=== PATIENT | female | born 1960 | race Caucasian/White ===

== ENCOUNTER → 2024-02-14 | Outpatient (CLI) | payer OTHER ==
[2024-02-14 11:11] LABS: Urine Bacteria FEW /hpf (None Seen); Urine Blood Negative /uL (Negative); Urine Budding Yeast OCCASIONAL /hpf (None Seen); Urine Clarity Turbid (Clear); Urine Color Yellow (Yellow); Urine Hyaline Cast FEW /lpf (0 - 2); Urine Mucus FEW (None Seen); Urine Protein, UAD Negative (Negative); Urine Urobilinogen Normal (Negative); Urine WBC <1 /hpf (0 - 5); Urine pH 5.5 (5.0-9.0)
[2024-02-14 11:16] LABS: Basophils # (auto) 0 10 ^3/uL (0-0.2); Basophils % (auto) 0.5 % (0.0-2.0); Eosinophils # (auto) 0.1 10 ^3/uL (0-0.8); Lymphocytes # (auto) 1.8 10 ^3/uL (0.4-5.4); Lymphocytes % (auto) 34.9 % (10.0-50.0); Mean Corpuscular Hemoglobin 29.8 pg (28.0-32.0); Mean Corpuscular Hgb Conc. 33.3 g/dL (32.0-36.0); Mean Corpuscular Volume 89.7 fL (80.0-100.0); Monocytes # (auto) 0.3 10 ^3/uL (0-1.3); Monocytes % (auto) 5.9 % (0.0-12.0); Neutrophils # (auto) 2.9 10 ^3/uL (1.6-8.6); Neutrophils % (auto) 56.7 % (37.0-80.0); Nucleated Red Blood Cells % 0.1 %; Red Blood Cells 4.68 10^6/uL (4.0-5.20); Red Cell Distribution Width 13.3 % (11.8-14.3); White Blood Cell 5.1 10^3/uL (4.4-10.8)
[2024-02-14 11:26] LABS: Albumin 4.5 g/dL (3.2-4.8); Alkaline Phosphatase 122 U/L (46-116); Anion Gap 5 (5-15); Aspartate Aminotransferase 13 U/L (13-40); BUN/Creatinine Ratio 10.8 (10.0-20.0); Blood Urea Nitrogen 10 mg/dL (9-23); Calcium 10.1 mg/dL (8.5-10.1); Carbon Dioxide 29 mmol/L (20-30); Chloride 106 mmol/L (98-107); Glucose 88 mg/dL (74-106); Potassium 4.4 mmol/L (3.5-5.1); Sodium 140 mmol/L (136-145)
[2024-02-14 11:27] LABS: Triglycerides 152 mg/dL (< 150)
[2024-02-14 11:28] LABS: Cholesterol 154 mg/dL (< 200); HDL Cholesterol 59 mg/dL (40-59); LDL Cholesterol 79 mg/dL (< 100)
[2024-02-14 11:29] LABS: Bilirubin, Total 0.3 mg/dL (0.2-1.0)
[2024-02-14 11:30] LABS: Folate (Folic Acid) 15.6 ng/mL (>5.38)
[2024-02-14 11:42] LABS: Alanine Aminotransferase 9 U/L (7-40)
[2024-02-14 11:51] LABS: Uric Acid 5.6 mg/dL (3.1-7.8)
== END | disposition home or self-care (01) ==
LOC: LAB 10:29
PROVIDERS: ATTEND Internal Medicine
DX: E61.2 Magnesium deficiency (principal); E79.0 Hyperuricemia without signs of inflammatory arthritis and tophaceous disease; R73.09 Other abnormal glucose; E78.49 Other hyperlipidemia; R68.89 Other general symptoms and signs; R94.6 Abnormal results of thyroid function studies; E55.9 Vitamin D deficiency, unspecified; R82.79 Other abnormal findings on microbiological examination of urine; R82.90 Unspecified abnormal findings in urine; D51.9 Vitamin B12 deficiency anemia, unspecified
CPT/HCPCS: 36415; 80053; 80061; 81001; 82306; 82607; 82746; 83036; 83735; 84443; 84550; 85025; 87086

== ENCOUNTER → 2024-06-13 | Outpatient (CLI) | payer OTHER ==
[2024-06-13 13:17] LABS: Urine WBC None Seen /hpf (0 - 5)
[2024-06-13 13:32] LABS: Urine Bacteria FEW /hpf (None Seen); Urine Blood Negative /uL (Negative); Urine Clarity Clear (Clear); Urine Color Yellow (Yellow); Urine Mucus FEW (None Seen); Urine Protein, UAD TRACE (Negative); Urine Specific Gravity 1.031 (1.001-1.035); Urine Urobilinogen Normal (Negative); Urine pH 5.5 (5.0-9.0)
[2024-06-13 14:00] LABS: % Iron Saturation 27.1 % (15-50); Albumin 4.5 g/dL (3.2-4.8); Alkaline Phosphatase 99 U/L (46-116); Anion Gap 5 (5-15); Aspartate Aminotransferase 12 U/L (13-40); BUN/Creatinine Ratio 12.8 (10.0-20.0); Bilirubin, Total 0.5 mg/dL (0.2-1.0); Blood Urea Nitrogen 12 mg/dL (9-23); CRP High Sensitivity 0.78 mg/dL (<1.0); Calcium 9.9 mg/dL (8.7-10.4); Carbon Dioxide 25 mmol/L (20-31); Chloride 110 mmol/L (98-107); Cholesterol 150 mg/dL (< 200); Glucose 99 mg/dL (74-106); HDL Cholesterol 58 mg/dL (40-59); LDL Cholesterol 79 mg/dL (< 100); Potassium 3.7 mmol/L (3.5-5.1); Sodium 140 mmol/L (136-145); Triglycerides 117 mg/dL (< 150)
[2024-06-13 14:01] LABS: Alanine Aminotransferase < 9 U/L (7-40); Erythrocyte Sedimentation Rate 5 mm/hr (0-20); Total Protein 6.9 g/dL (5.7-8.2)
[2024-06-13 14:10] LABS: Free T4 (Free Thyroxine) 1.01 ng/dL (0.89-1.76)
[2024-06-13 14:11] LABS: Uric Acid 5.8 mg/dL (3.1-7.8)
[2024-06-14 08:06] LABS: Complement C3 156 mg/dL (82-167); Rheumatoid Arthritis Factor 10.5 IU/mL (<14.0); Thyroid Peroxidase (TPO) Ab 14 IU/mL (0-34)
[2024-06-14 11:06] LABS: Anti-Nuclear Antibody Direct Negative (Negative); Anti-dsDNA Antibody 4 IU/mL (0-9); Antiscleroderma-70 Antibody <0.2 AI (0.0-0.9); RNP Antibody <0.2 AI (0.0-0.9); Sjogren's Anti-SS-A Antibody <0.2 AI (0.0-0.9); Sjogren's Anti-SS-B Antibody <0.2 AI (0.0-0.9); Smith Antibody <0.2 AI (0.0-0.9)
== END | disposition home or self-care (01) ==
LOC: LAB 12:57
PROVIDERS: ATTEND Internal Medicine
DX: L28.2 Other prurigo (principal); E78.00 Pure hypercholesterolemia, unspecified; M79.3 Panniculitis, unspecified; R79.89 Other specified abnormal findings of blood chemistry
CPT/HCPCS: 36415; 80053; 80061; 81001; 82306; 82607; 82672; 83036; 83540; 83550; 83880; 84439; 84443; 84550; 85652; 86141; 86160; 86225; 86235; 86376; 86431; 87086

== ENCOUNTER → 2024-10-27 | Outpatient (CLI) | payer OTHER ==
[2024-10-27 11:22] LABS: Basophils # (auto) 0 10 ^3/uL (0-0.2); Eosinophils # (auto) 0.1 10 ^3/uL (0-0.8); Eosinophils % (auto) 1.7 % (0.0-7.0); Hematocrit 42.5 % (36.0-46.0); Hemoglobin 13.8 g/dL (12.2-16.2); Lymphocytes # (auto) 1.5 10 ^3/uL (0.4-5.4); Lymphocytes % (auto) 30.9 % (10.0-50.0); Mean Corpuscular Hemoglobin 29.3 pg (28.0-32.0); Mean Corpuscular Hgb Conc. 32.5 g/dL (32.0-36.0); Mean Corpuscular Volume 90.2 fL (80.0-100.0); Monocytes # (auto) 0.3 10 ^3/uL (0-1.3); Monocytes % (auto) 6.1 % (0.0-12.0); Neutrophils % (auto) 60.3 % (37.0-80.0); Nucleated Red Blood Cells % 0.1 %; Platelet Count (auto) 268 10^3/uL (140-450); Red Blood Cells 4.71 10^6/uL (4.0-5.20); Red Cell Distribution Width 13.2 % (11.8-14.3)
[2024-10-27 12:07] LABS: Folate (Folic Acid) 15.64 ng/mL (>5.38)
[2024-10-27 12:08] LABS: Albumin 4.8 g/dL (3.2-4.8); Alkaline Phosphatase 101 U/L (46-116); Anion Gap 10 (5-15); Aspartate Aminotransferase 14 U/L (13-40); BUN/Creatinine Ratio 14.4 (10.0-20.0); Blood Urea Nitrogen 14 mg/dL (9-23); Calcium 9.8 mg/dL (8.7-10.4); Carbon Dioxide 25 mmol/L (20-31); Chloride 104 mmol/L (98-107); Glucose 92 mg/dL (74-106); Potassium 3.9 mmol/L (3.5-5.1); Sodium 139 mmol/L (136-145); Total Protein 7.2 g/dL (5.7-8.2)
[2024-10-27 12:09] LABS: Bilirubin, Total 0.5 mg/dL (0.2-1.0)
[2024-10-27 12:12] LABS: Erythrocyte Sedimentation Rate 2 mm/hr (0-20)
[2024-10-27 12:17] LABS: Alanine Aminotransferase < 9 U/L (7-40); Cholesterol 210 mg/dL (< 200); Triglycerides 181 mg/dL (< 150)
[2024-10-27 12:18] LABS: CRP High Sensitivity 0.96 mg/dL (<1.0); HDL Cholesterol 67 mg/dL (40-59); LDL Cholesterol 121 mg/dL (< 100)
[2024-10-27 13:03] LABS: Uric Acid 5.8 mg/dL (3.1-7.8)
== END | disposition home or self-care (01) ==
LOC: LAB 10:50
PROVIDERS: ATTEND Internal Medicine
DX: E61.2 Magnesium deficiency (principal); E55.9 Vitamin D deficiency, unspecified; D51.9 Vitamin B12 deficiency anemia, unspecified; E78.49 Other hyperlipidemia; E79.0 Hyperuricemia without signs of inflammatory arthritis and tophaceous disease; R94.6 Abnormal results of thyroid function studies; R82.79 Other abnormal findings on microbiological examination of urine; R82.998 Other abnormal findings in urine; R73.09 Other abnormal glucose; R68.89 Other general symptoms and signs; R82.90 Unspecified abnormal findings in urine
CPT/HCPCS: 36415; 80053; 80061; 82306; 82607; 82746; 83036; 84443; 84550; 85025; 85652; 86141; 87086

== ENCOUNTER 2025-06-25 23:34 | Inpatient (IN) | payer OTHER ==
[~2025-06-25] VITALS: Ht 170.2 cm; Wt 80.3 kg
[2025-06-26] VITALS (14 sets, daily range): BP systolic 101–164; BP diastolic 48–90; PULSE 68–110; RESP 17–18; TEMP 97.9–101.1; O2SAT 95–100
[2025-06-26 00:20] LABS: Hematocrit 40.2 % (36.0-46.0); Hemoglobin 13.2 g/dL (12.2-16.2); Mean Corpuscular Hemoglobin 29.7 pg (28.0-32.0); Mean Corpuscular Volume 90.5 fL (80.0-100.0); Nucleated Red Blood Cells % 0.0 %
--- NOTE | 2025-06-26 00:29 | DVH ---
CHEST RADIOGRAPH Indication: sob Technique: 1 view Comparison: None FINDINGS: Lines and Tubes: None. Lungs/Pleura: No focal consolidation, pleural effusion or pneumothorax. Cardiomediastinum: Unremarkable. Other: No acute osseous abnormality. Right upper quadrant surgical clips. IMPRESSION: 1. No acute cardiopulmonary abnormality.
[2025-06-26 00:40] LABS: Albumin 4.5 g/dL (3.2-4.8); Alkaline Phosphatase 112 U/L (46-116); Anion Gap 7 (5-15); BUN/Creatinine Ratio 9.3 (10.0-20.0); Calcium 9.6 mg/dL (8.7-10.4); Carbon Dioxide 26 mmol/L (20-31); Chloride 106 mmol/L (98-107); Magnesium 1.9 mg/dL (1.6-2.6); Potassium 4.1 mmol/L (3.5-5.1); Sodium 139 mmol/L (136-145); Total Protein 7.1 g/dL (5.7-8.2)
[2025-06-26 00:41] LABS: Alanine Aminotransferase < 9 U/L (7-40); Bilirubin, Total 0.5 mg/dL (0.2-1.0); Blood Urea Nitrogen 9 mg/dL (9-23); Glucose 117 mg/dL (74-106)
[2025-06-26] MEDS: IPRATROPIUM BROM 0.5 MG/2.5ML INH SOL NEB ONE (00:52)
[2025-06-26] MEDS: ALBUTEROL SULF 2.5 MG/0.5ML(0.5%) NEB SOLN NEB ONE (00:52)
[2025-06-26 01:10] LABS: INR 0.95 (0.9-1.15); Partial Thromboplastin Time 25.9 SEC (24.5-34.5); Prothrombin Time 10.1 sec (9.3-11.8)
[2025-06-26] MEDS ORDERED: DOCUSATE SOD 100 MG CAP PO PRN (02:00)
[2025-06-26] MEDS ORDERED: ACETAMINOPHEN 325 MG TAB PO PRN (02:00)
[2025-06-26] MEDS: ACETAMINOPHEN 500 MG TAB or CAP PO STA (03:33)
[2025-06-26] MEDS: LACTATED RINGER'S 1,850 ML IV ONE (03:53)
[2025-06-26 04:06] LABS: Hematocrit 39.6 % (36.0-46.0); Hemoglobin 13.1 g/dL (12.2-16.2); Mean Corpuscular Hemoglobin 29.8 pg (28.0-32.0); Mean Corpuscular Volume 89.8 fL (80.0-100.0); Nucleated Red Blood Cells % 0.0 %
[2025-06-26 04:11] LABS: COVID19 ANTIGEN SOFIA FIA NEGATIVE (NEGATIVE)
[2025-06-26] MEDS: SODIUM CHLORIDE 0.9% 1,000 ML IV SCH (04:15)
[2025-06-26] MEDS ORDERED: NITROGLYCERIN 0.4 MG SL TAB SL PRN (04:15)
[2025-06-26] MEDS ORDERED: MORPHINE SULFATE INJ 2 MG/ml SYRG IV PRN (04:15)
[2025-06-26 04:34] LABS: Albumin 4.5 g/dL (3.2-4.8); Alkaline Phosphatase 104 U/L (46-116); Anion Gap 9 (5-15); BUN/Creatinine Ratio 7.4 (10.0-20.0); Bilirubin, Total 0.5 mg/dL (0.2-1.0); Calcium 9.7 mg/dL (8.7-10.4); Carbon Dioxide 25 mmol/L (20-31); Chloride 106 mmol/L (98-107); Potassium 3.6 mmol/L (3.5-5.1); Sodium 140 mmol/L (136-145); Total Protein 7.2 g/dL (5.7-8.2)
[2025-06-26 04:37] LABS: Alanine Aminotransferase < 9 U/L (7-40); Blood Urea Nitrogen 7 mg/dL (9-23); Glucose 107 mg/dL (74-106)
[2025-06-26] MEDS: SODIUM CHLOR 0.9% PF (SALINE LOCK) 10ML VIAL/SYR IV SCH (06:02)
[2025-06-26] MEDS: PIPERACILLIN-TAZOB 3.375GM 100 ML IV SCH (06:06)
[2025-06-26 06:37] LABS: Urine Protein, UAD Negative (Negative)
[2025-06-26] MEDS: LEVALBUTEROL HCL 1.25 MG/3 ML NEB NEB SCH (07:22)
[2025-06-26] MEDS: METOPROLOL TARTRATE 25 MG TAB PO SCH (09:59)
[2025-06-26] MEDS: HYDROcodone-ACET 5/325MG TAB PO PRN (10:00)
[2025-06-26] MEDS ORDERED: HYDR-4798 PO (11:13)
[2025-06-26] MEDS ORDERED: ESTR2TAB5 PO (11:13)
[2025-06-26] MEDS ORDERED: LOSA-533 PO (11:13)
--- NOTE | 2025-06-26 11:30 | ED.PDOC ---
SOB-HPI HPI Comments HPI: Poor Historian. 65-year-old female presents to emergency depart for one-week history of cough and shortness of breath progressively getting worse. She also complains of fever. Denies sick contacts. Patient has sepsis criteria. Sepsis protocol initiated. Past Medical History: Hypertension Past Surgical History: Right knee surgery, hysterectomy, appendectomy, cholecystectomy Allergies to steroids REVIEW OF SYSTEMS: CONSTITUTIONAL: Denies acute: diaphoresis, chills, HEAD: Denies acute: headache, photophobia Eyes: Denies acute: Double vision, vision loss, eye pain, eye discharge. EARS: Denies acute: tinnitus, hearing loss, ear discharge, ear pain, THROAT: Denies acute: sore throat, swelling, difficulty swallowing , pain with swallowing, change in voice. NECK: Denies acute: neck pain, neck swelling, stiff neck. HEART: Denies acute : chest pain, palpitations, LUNGS: Denies acute: wheezing, hemoptysis ABDOMEN: Denies acute: abdominal pain, Nausea, Vomiting, diarrhea, melena , hematemesis, hematochezia SKIN: Denies acute: rash, redness, lesions, itchiness. EXTREMITIES: Denies acute: calf pain, numbness, tingling, weakness, denies pain in extremity. Denies acute: Low back pain. Neuro: Denies acute: focal neurological deficit, motor or sensory focal neurological deficit, tremors, seizure like activity, confusion, dizziness, change in mental status, loss of bowel or bladder function, cauda equina like symptoms. : Denies acute: dysuria, hematuria, flank pain, increase in urinary frequency. PSYCH: Denies acute: hallucination, suicidal ideation, homicidal ideation. FEMALE: Denies acute: abnormal vaginal bleeding, foul odor, unusual discharge. PHYSICAL EXAM: General: ---moderate-----acute distress, awake and alert. Head: normocephalic, atraumatic. Neck: supple, trachea is midline, no swelling. Throat: Normal phonation. Eyes:, no erythema, no purulent discharge, no proptosis, no icterus. Heart: regular rate, regular rhythm, no significant murmur appreciated. Lungs: no apparent respiratory distress, Able to speak in full sentences. No wheezing, no rhonchi, no crackles. No stridors Clear to auscultation bilaterally. Abdomen: non tender to palpation, non distended, soft, no guarding, no rebound, + bowel sounds. Neuro: Awake, Alert, oriented to name, self, situation, follows commands GCS=15. Speech is normal. Skin: no petechia, no purpura, no cyanosis, non-pale, not jaundice. Lower extremities: --no - Pitting edema no deformity, no focal swelling, no calf TTP. Makes eye contact. moves all four extremities. Face: no apparent facial droop. Ambulating in the ED independently. ED COURSE: DISCLAIMER: This medical document was created using an electronic medical record system with voice recognition software and computerized dictation system. Although this document has been carefully reviewed, there might still be some phonetic and typographical errors. Occasional wrong-word or "sound-alike" substitutions may have occurred due to the inherent limitations of voice recognition software. These areas are purely typographical due to imperfections of the software programs and do not reflect any compromise in the patient's medical care. Please read the chart carefully and recognize, using context, where these substitutions have occurred. Chief Complaint: Shortness of Breath Time Seen by MD: 23:52 Reviewed notes: Allergies Information Source: Patient Mode of Arrival: Ambulatory Differential Dx Differential Diagnosis: Other (DDx include ACS, unstable angina, anxiety, PE, pneumothroax, neoplasm, cardiac ischemia, COPD, asthma, CHF, pleural effusion, tobacco abuse, pneumonia, hypoxia, hypercapnia, anemia., infection/sepsis., pulmonary edema. Asthma, Cardiac tamponade, infection.) X-Ray, Labs, Meds, VS Vital Signs Date Time Temp Pulse Resp B/P (MAP) Pulse Ox O2 Delivery O2 Flow Rate FiO2 06/26/25 03:33 99.0 06/26/25 03:20 100 18 100 Room Air* 0 21 06/26/25 03:20 99.0 100 18 140/78 (98) 100 99.0 06/26/25 02:15 101.1 68 18 164/90 99 21 101.1 06/26/25 00:23 20 97 Room Air* 0 21 06/25/25 23:35 101.1 135 20 164/90 98 101.1 Lab Test 06/26/25 03:41 06/26/25 03:15 06/26/25 00:45 06/25/25 23:57 Range/Units White Blood Count 13.0 H 12.8 H 4.4-10.8 10^3/uL Red Blood Count 4.40 4.44 4.0-5.20 10^6/uL Hemoglobin 13.1 13.2 12.2-16.2 g/dL Hematocrit 39.6 40.2 36.0-46.0 % Mean Corpuscular Volume 89.8 90.5 80.0-100.0 fL Mean Corpuscular Hemoglobin 29.8 29.7 28.0-32.0 pg Mean Corpuscular Hemoglobin Concent 33.1 32.8 32.0-36.0 g/dL Red Cell Distribution Width 13.3 13.2 11.8-14.3 % Platelet Count 316 306 140-450 10^3/uL Mean Platelet Volume 8.3 8.4 6.9-10.8 fL Neutrophils (%) (Auto) 83.3 H 86.2 H 37.0-80.0 % Lymphocytes (%) (Auto) 10.6 7.7 L 10.0-50.0 % Monocytes (%) (Auto) 4.4 4.3 0.0-12.0 % Eosinophils (%) (Auto) 0.8 1.1 0.0-7.0 % Basophils (%) (Auto) 0.9 0.7 0.0-2.0 % Neutrophils # (Auto) 10.8 H 11.1 H 1.6-8.6 10 ^3/uL Lymphocytes # (Auto) 1.4 1.0 0.4-5.4 10 ^3/uL Monocytes # (Auto) 0.6 0.5 0-1.3 10 ^3/uL Eosinophils # (Auto) 0.1 0.1 0-0.8 10 ^3/uL Basophils # (Auto) 0.1 0.1 0-0.2 10 ^3/uL Nucleated Red Blood Cells 0.0 0.0 % Erythrocyte Sedimentation Rate 13 0-20 mm/hr Sodium Level 140 139 136-145 mmol/L Potassium Level 3.6 4.1 3.5-5.1 mmol/L Chloride Level 106 106 98-107 mmol/L Carbon Dioxide Level 25 26 20-31 mmol/L Anion Gap 9 7 5-15 Blood Urea Nitrogen 7 L 9 9-23 mg/dL Creatinine 0.94 0.97 0.550-1.02 mg/dL Glomerular Filtration Rate Calc 68 66 >90 mL/min BUN/Creatinine Ratio 7.4 L 9.3 L 10.0-20.0 Serum Glucose 107 H 117 H 74-106 mg/dL Calcium Level 9.7 9.6 8.7-10.4 mg/dL Total Bilirubin 0.5 0.5 0.2-1.0 mg/dL Aspartate Amino Transferase (AST) 16 14 13-40 U/L Alanine Aminotransferase (ALT) < 9 < 9 7-40 U/L Alkaline Phosphatase 104 112 46-116 U/L C-Reactive Protein High Sensitivity 5.12 H <1.0 mg/dL Total Protein 7.2 7.1 5.7-8.2 g/dL Albumin 4.5 4.5 3.2-4.8 g/dL Influenza Type A Antigen Negative Negative Influenza Type B Antigen Negative Negative SARS-CoV-2 Antigen (Rapid) Negative NEGATIVE Troponin I High Sensitivity < 3 L < 3 L </=34 ng/L Prothrombin Time 10.1 9.3-11.8 sec Prothrombin Time INR 0.95 0.9-1.15 Activated Partial Thromboplast Time 25.9 24.5-34.5 SEC D-Dimer, Quantitative 0.38 0.0-0.49 mg/L FEU Lactic Acid Level 1.5 0.4-2.0 mmol/L Magnesium Level 1.9 1.6-2.6 mg/dL Test 06/25/25 23:52 Range/Units B-Type Natriuretic Peptide 48.11 0-100 pg/mL Microbiology Date/Time Source Procedure Growth Status 06/25/25 23:59 Blood Blood Culture - Preliminary NO GROWTH AFTER 24 HOURS OF INCUBATION. Resulted 06/25/25 23:57 Blood Blood Culture - Preliminary NO GROWTH AFTER 24 HOURS OF INCUBATION. Resulted [address] [address] Ph: [phone] DIAGNOSTIC IMAGING Diagnostic Imaging Report : [id number] Signed PATIENT: DOMENICA HAY ACCT: [id number] UNIT: [id number] : 1960 LOC: ER ROOM / BED: / AGE / SEX: 65 / F ADM STATUS: REG ER SERVICE 642 ORDERING PHYSICIAN: BUCKY EL DO PROCEDURE(s): CXRP - CHEST PORTABLE REASON: sob ORDER NUMBER(s): [id number], ACCESSION NUMBER(s): [id number] CHEST RADIOGRAPH Indication: sob Technique: 1 view Comparison: None FINDINGS: Lines and Tubes: None. Lungs/Pleura: No focal consolidation, pleural effusion or pneumothorax. Cardiomediastinum: Unremarkable. Other: No acute osseous abnormality. Right upper quadrant surgical clips. IMPRESSION: 1. No acute cardiopulmonary abnormality. ATED BY: LIZZETTE DIAZ MD DICTATED DATE/TIME: 06/26/2525 SIGNED BY: LIZZETTE DIAZ MD SIGNED DATE/TIME: 06/26/2525 CC: Time of 1ST Reevaluation: 01:14 Reevaluation 1ST: Unchanged Patient Education/Counseling: Diagnosis, Treatment Family Education/Counseling: Diagnosis, Treatment Comments MDM: patient presented with the above HPI.--dyspnea/fever----workup was initiated. patient was found with the above mentioned diagnosis. the following medications were ordered: please refer to order lists of meds and tests obtained by myself Dr. El. Patient ED course and VS have been stabilized. Patient has been reassessed in the ED and remained in a stable condition. Pertinent incidental findings were discussed with the patient and/or family. Patient/family voices understanding and is agreeable with plan. Patient has been observed in the ED adequate length of time to insure improvement/stability. Escalation of care considered: Consideration of escalation to observation or admission Sepsis protocol initiated. Patient was ADMITTED to the medicine team for further evaluation and treatment of their presentation. All the reports of any imaging studies that were ordered by myself were reviewed by myself. SEPSIS Sepsis Screen Date sepsis recognized/suspect: Jun 25, 2025 Time Sepsis recognized/suspect: 2336 Recent Procedure: No On Antibiotic Therapy: No Respiratory Rate >20: No Heart Rate >90: No Temp<36 C (96.8 F) or >38.3 C: Yes (101.1) SBP <90 or MAP <65 mmHG: No New Acute Mental Status Change: No Is the patient on CPAP, BIPAP,: No Physician Orders Email Marketer (06/25/25 ) Chest Portable (06/25/25 23:52) Electrocardigram (06/25/25 23:52) Blood Culture (06/25/25 23:52) Accucheck (06/25/25 23:54) Notify Md If Map <65 Or Bp<90 (06/25/25 23:54) If Map<65 Start Vasopressor (06/25/25 23:54) Sepsis Reassesment After Fluid (06/26/25 00:54) Acetaminophen Tab Or Cap (Tylenol Tablet (06/26/25 00:30) Metoprolol Tartrate Tablet (Lopressor Ta (06/26/25 10:00) Clonidine Hcl Tablet (Catapres Tablet) (06/26/25 02:00) Piperacillin-Tazob 3.375gm (Zosyn 3.375g (06/26/25 06:00) Allergies (06/26/25 01:59) Code Status (06/26/25 01:59) Sodium Chloride Lock (Saline Lock Ns) (06/26/25 06:00) Oxygen Per Hour (06/26/25 01:59) Ondansetron Hcl (Zofran) (06/26/25 02:00) Docusate Sodium Capsule (Colace Capsule) (06/26/25 02:00) Complete Blood Count (06/27/25 04:00) Comprehensive Metabolic Panel (06/27/25 04:00) Cardiac Diet-2gna,Lofat,Lochol (06/26/25 Breakfast) Condition: Serious (06/26/25 01:59) Acetaminophen Tablet (Tylenol Tablet) (06/26/25 02:00) Bedrest With Bathroom Privileg (06/26/25 01:59) Maintain Bed Rest (06/26/25 01:59) Sequential Compression Device (06/26/25 ) Vital Signs Date Time Temp Pulse Resp B/P (MAP) Pulse Ox O2 Delivery O2 Flow Rate FiO2 06/26/25 03:33 99.0 06/26/25 03:20 100 18 100 Room Air* 0 21 06/26/25 03:20 99.0 100 18 140/78 (98) 100 99.0 06/26/25 02:15 101.1 68 18 164/90 99 21 101.1 06/26/25 00:23 20 97 Room Air* 0 21 06/25/25 23:35 101.1 135 20 164/90 98 101.1 Laboratory Tests Test 06/25/25 23:57 06/26/25 03:41 Lactic Acid Level 1.5 mmol/L (0.4-2.0) White Blood Count 12.8 10^3/uL (4.4-10.8) H 13.0 10^3/uL (4.4-10.8) H Departure 1 Departure Time of Disposition: 00:00 Impression: Primary Impression: Sepsis Additional Impressions: Fever Dyspnea Disposition: ADMITTED INPATIENT Admit to: Tele Condition: Guarded Discharged With: Self Critical Care Note Critical Care Time?: Yes (45 min-critical care time only) BUCKY EL DO Jun 26, 2025 00:31
--- NOTE | 2025-06-26 11:38 | DVHHP2 ---
History of Present Illness Reason for Visit: Sepsis, unspecified organism History of Present Illness The patient is a 65-year-old female with past medical history of hypertension who presented to [facility] ED with complaint of shortness of breaths. Patient reports that she has been experiencing difficulty breathing for the past 1 day, associated with cough, shortness of breaths at rest, increased work of breathing, getting worse that prompted this visit. Patient was seen and evaluated in the ED, laboratory data shows elevated WBC 12.8, platelets 306, sodium 139, potassium 4.1, BUN 9, creatinine 0.97, GFR 66, lactic acid 1.5, glucose 117, troponin < 3, calcium 9.6, BNP 48.11, blood pressure 164/90, heart rate 35, temperature 101.1 F, O2 saturation 97% on oxygen. Patient was started on IV antibiotic regimen Rocephin, please see medication orders section in the computer. On my assessment, patient denied chest pain, no headache, dizziness, diaphoresis, no diarrhea, nausea, vomiting, chills. Patient was admitted for further evaluation and medical management. Past Medical History Hypertension Past Surgical History Right knee surgery, hysterectomy, appendectomy, cholecystectomy Family History Reviewed, noncontributory to the management of this case. Past Social History The patient lives at home, denies smoking, alcohol or illicit drugs abuse. Review of Systems Constitutional: Yes: Weakness; No: Fever, Chills, Sweats, Malaise, Other Eyes: No: Pain, Vision change, Conjunctivae inflammation, Eyelid inflammation, Other, Redness ENT: No: Ear pain, Ear discharge, Nose pain, Nose discharge, Nose congestion, Mouth pain, Mouth swelling, Throat pain, Throat swelling, Other Respiratory: Cough, Shortness of breath, Other (SOB at rest); No: Dry, SOB with excertion, Wheezing, Hemoptysis, Pleuritic Pain, Sputum, Wheezing Cardiovascular: No: Chest Pain, Palpitations, Orthopnea, Paroxysmal Noc. Dyspnea, Edema, Lt Headedness, Other Gastrointestinal: No: Nausea, Vomiting, Abdominal Pain, Diarrhea, Constipation, Melena, Hematochezia, Other Genitourinary: No Dysuria, No Frequency, No Incontinence, No Hematuria, No Retention, No Other Musculoskeletal: No: other, neck pain, shoulder pain, arm pain, back pain, hand pain, leg pain, foot pain Skin: No: Rash, Lesions, Jaundice, Bruising, Other Neurological: No: Weakness, Numbness, Incoordination, Change in speech, Confusion, Seizures, Other Allergies: Coded Allergies: Methylprednisolone (Verified Allergy, Unknown, 06/25/25) Medications Current Medications Medications Dose Ordered Sig/Lacey Route Start Time Stop Time Status Last Admin Dose Admin Levalbuterol HCl 0.625 mg Q6HR NEB 06/26/25 06:00 Metoprolol Tartrate 25 mg BID PO 06/26/25 10:00 Clonidine HCl 0.1 mg Q4HP PRN PO 06/26/25 02:00 Piperacillin Sod/ Tazobactam Sod 100 ml @ 25 mls/hr Q8HR IV 06/26/25 06:00 Sodium Chloride 10 ml Q8HR IV 06/26/25 06:00 Acetaminophen/ Hydrocodone Bitart 1 tab Q4HP PRN PO 06/26/25 02:00 Ondansetron HCl 4 mg Q4HP PRN IV 06/26/25 02:00 Docusate Sodium 100 mg BIDPRN PRN PO 06/26/25 02:00 Acetaminophen 650 mg Q6HP PRN PO 06/26/25 02:00 Exam Vital Signs Vital Signs Date Time Temp Pulse Resp B/P (MAP) Pulse Ox O2 Delivery O2 Flow Rate FiO2 06/26/25 03:33 99.0 06/26/25 03:20 100 18 100 Room Air* 0 21 06/26/25 03:20 140/78 (98) General Appearance: Alert, Oriented X3, Cooperative, No acute distress HEENT: Atraumatic, PERRLA, EOMI, Mucous membr. moist/pink Respiratory: Normal air movement, Other (Shortness of breaths) Cardiovascular: Regular rate, Normal S1, Normal S2, No murmurs Abdominal: Normal bowel sounds, Soft, No tenderness, No hepatospenomegaly, No masses Extremities: No clubbing, No cyanosis, No edema, Normal pulses, No tenderness/swelling Skin: No rashes, No significant lesion Neuro: Normal speech, Normal tone, Sensation intact, Cranial nerves 3-12 NL, Reflexes 2+, Other (Generalized weakness) Psych/Mental Status: Mental status NL, Mood NL Labs/Xrays Labs Test 06/26/25 03:41 06/26/25 03:15 06/26/25 00:45 06/25/25 23:57 Range/Units White Blood Count 13.0 H 4.4-10.8 10^3/uL Red Blood Count 4.40 4.0-5.20 10^6/uL Hemoglobin 13.1 12.2-16.2 g/dL Hematocrit 39.6 36.0-46.0 % Mean Corpuscular Volume 89.8 80.0-100.0 fL Mean Corpuscular Hemoglobin 29.8 28.0-32.0 pg Mean Corpuscular Hemoglobin Concent 33.1 32.0-36.0 g/dL Red Cell Distribution Width 13.3 11.8-14.3 % Platelet Count 316 140-450 10^3/uL Mean Platelet Volume 8.3 6.9-10.8 fL Neutrophils (%) (Auto) 83.3 H 37.0-80.0 % Lymphocytes (%) (Auto) 10.6 10.0-50.0 % Monocytes (%) (Auto) 4.4 0.0-12.0 % Eosinophils (%) (Auto) 0.8 0.0-7.0 % Basophils (%) (Auto) 0.9 0.0-2.0 % Neutrophils # (Auto) 10.8 H 1.6-8.6 10 ^3/uL Lymphocytes # (Auto) 1.4 0.4-5.4 10 ^3/uL Monocytes # (Auto) 0.6 0-1.3 10 ^3/uL Eosinophils # (Auto) 0.1 0-0.8 10 ^3/uL Basophils # (Auto) 0.1 0-0.2 10 ^3/uL Nucleated Red Blood Cells 0.0 % Influenza Type A Antigen Negative Negative Influenza Type B Antigen Negative Negative SARS-CoV-2 Antigen (Rapid) Negative NEGATIVE Troponin I High Sensitivity < 3 L </=34 ng/L Prothrombin Time 10.1 9.3-11.8 sec Prothrombin Time INR 0.95 0.9-1.15 Activated Partial Thromboplast Time 25.9 24.5-34.5 SEC D-Dimer, Quantitative 0.38 0.0-0.49 mg/L FEU Lactic Acid Level 1.5 0.4-2.0 mmol/L Magnesium Level 1.9 1.6-2.6 mg/dL Test 06/25/25 23:52 Range/Units B-Type Natriuretic Peptide 48.11 0-100 pg/mL SEPSIS Sepsis Screen Date sepsis recognized/suspect: Jun 26, 2025 Time Sepsis recognized/suspect: 357 Recent Procedure: No On Antibiotic Therapy: Yes Respiratory Rate >20: No Heart Rate >90: Yes Temp<36 C (96.8 F) or >38.3 C: No SBP <90 or MAP <65 mmHG: No New Acute Mental Status Change: No Is the patient on CPAP, BIPAP,: No Physician Orders Lockstitch Lining Setter (06/25/25 ) Urinalysis (06/25/25 23:52) Chest Portable (06/25/25 23:52) Electrocardigram (06/25/25 23:52) Blood Culture (06/25/25 23:52) Accucheck (06/25/25 23:54) Notify Md If Map <65 Or Bp<90 (06/25/25 23:54) If Map<65 Start Vasopressor (06/25/25 23:54) Sepsis Reassesment After Fluid (06/26/25 00:54) Acetaminophen Tab Or Cap (Tylenol Tablet (06/26/25 00:30) Comprehensive Metabolic Panel (06/26/25 04:00) Levalbuterol Hcl (Xopenex Medneb) (06/26/25 06:00) Metoprolol Tartrate Tablet (Lopressor Ta (06/26/25 10:00) Clonidine Hcl Tablet (Catapres Tablet) (06/26/25 02:00) Piperacillin-Tazob 3.375gm (Zosyn 3.375g (06/26/25 06:00) Allergies (06/26/25 01:59) Code Status (06/26/25 01:59) Sodium Chloride Lock (Saline Lock Ns) (06/26/25 06:00) Oxygen Per Hour (06/26/25 01:59) Hydrocodone-Acet 5/325mg Tab ([place] 5/32 (06/26/25 02:00) Ondansetron Hcl (Zofran) (06/26/25 02:00) Docusate Sodium Capsule (Colace Capsule) (06/26/25 02:00) Complete Blood Count (06/27/25 04:00) Comprehensive Metabolic Panel (06/27/25 04:00) Cardiac Diet-2gna,Lofat,Lochol (06/26/25 Breakfast) Condition: Serious (06/26/25 01:59) Acetaminophen Tablet (Tylenol Tablet) (06/26/25 02:00) Bedrest With Bathroom Privileg (06/26/25 01:59) Maintain Bed Rest (06/26/25 01:59) Sequential Compression Device (06/26/25 ) Admit (06/26/25 04:11) 0.9% Ns 1000 Ml (06/26/25 04:15) Nitroglycerin Sublingual (Ntrostat Subli (06/26/25 04:15) Morphine Sulfate Injection (06/26/25 04:15) Stat Ekg For Chest Pain (06/26/25 04:11) Notify Of Changes From Base (06/26/25 04:11) Circulation Man For 24 Hours (06/26/25 04:11) Emergency Dysrhythmia Protocol (06/26/25 04:11) Rhythm Strips Once Every Shift (06/26/25 04:11) Oxygen By Nasal Cannula (06/26/25 04:11) Vital Signs Date Time Temp Pulse Resp B/P (MAP) Pulse Ox O2 Delivery O2 Flow Rate FiO2 06/26/25 03:33 99.0 06/26/25 03:20 100 18 100 Room Air* 0 21 06/26/25 03:20 99.0 100 18 140/78 (98) 100 99.0 06/26/25 02:15 101.1 68 18 164/90 99 21 101.1 06/26/25 00:23 20 97 Room Air* 0 21 06/25/25 23:35 101.1 135 20 164/90 98 101.1 Laboratory Tests Test 06/25/25 23:57 06/26/25 03:41 Lactic Acid Level 1.5 mmol/L (0.4-2.0) White Blood Count 12.8 10^3/uL (4.4-10.8) H 13.0 10^3/uL (4.4-10.8) H Medications Medications Dose Ordered Sig/Lacey Route Start Time Stop Time Status Last Admin Dose Admin Acetaminophen 650 mg ONCE STAT PO 06/26/25 00:30 06/26/25 00:42 DC 06/26/25 03:33 650 MG Albuterol 2.5 mg ONCE ONCE NEB 06/26/25 00:30 06/26/25 00:42 DC 06/26/25 00:52 2.5 MG Ceftriaxone Sodium 50 ml @ 100 mls/hr ONCE ONCE IV 06/26/25 00:30 06/26/25 00:59 DC 06/26/25 00:30 100 MLS/HR Ipratropium [place] 1 mg ONCE ONCE NEB 06/26/25 00:30 06/26/25 00:42 DC 06/26/25 00:52 1 MG Lactated Ringer's 1,850 ml @ 1,850 mls/hr ONCE ONCE IV 06/26/25 00:00 06/26/25 00:59 DC 06/26/25 03:53 1,850 MLS/HR Assessment/Plan Assessment/Plan Sepsis, unspecified organism Generalized weakness Plan 1. Admit to telemetry unit 2. Breathing treatment 3. Pain control management 4. IV antibiotic management 5. Management of fluids and electrolytes 6. Consultation for hospitalist 7. Diagnostic test chest x-ray 8. DVT prophylaxis-on SCDs 9. Repeat labs CBC, CMP in a.m. 10. Home medication reviewed and reconciled 11. Continue with current medical management 12. Treatment plan discussed with patient and RN. Patient verbalized understanding. Plan discussed with: Patient, Other (RN) My Orders Orders - SILVIA MATTA DNP Procedure Category Date Status Time Comprehensive LAB 06/26/25 In Process Metabolic Panel 04:00 Levalbuterol Hcl PHA 06/26/25 In Process (Xopenex Medneb) 06:00 Metoprolol Tartrate PHA 06/26/25 In Process Tablet (Lopressor Ta 10:00 Clonidine Hcl Tablet PHA 06/26/25 In Process (Catapres Tablet) 02:00 Piperacillin-Tazob PHA 06/26/25 In Process 3.375gm (Zosyn 3.375g 06:00 Allergies RACHEL 06/26/25 In Process 01:59 Code Status CODE 06/26/25 Transmitted 01:59 Sodium Chloride Lock PHA 06/26/25 In Process (Saline Lock Ns) 06:00 Oxygen Per Hour RT 06/26/25 Transmitted 01:59 Hydrocodone-Acet PHA 06/26/25 In Process 5/325mg Tab ([place] 02:00 Ondansetron Hcl PHA 06/26/25 In Process (Zofran) 02:00 Docusate Sodium [facility] 06/26/25 In Process Capsule (Colace 02:00 Complete Blood Count LAB 06/27/25 Verified 04:00 Comprehensive LAB 06/27/25 Verified Metabolic Panel 04:00 Cardiac DIET 06/26/25 Transmitted Diet-2gna,Lofat,Lochol Breakfast Condition: Serious [facility] 06/26/25 In Process 01:59 Acetaminophen Tablet [facility] 06/26/25 In Process (Tylenol Tablet) 02:00 Bedrest With Bathroom [facility] 06/26/25 In Process Privileg 01:59 Maintain Bed Rest [facility] 06/26/25 In Process 01:59 Sequential [facility] 06/26/25 In Process Compression Device Admit ADMIT 06/26/25 Transmitted 04:11 0.9% Ns 1000 Ml [facility] 06/26/25 Transmitted 04:15 Nitroglycerin [facility] 06/26/25 Transmitted Sublingual (Ntrostat 04:15 Morphine Sulfate [facility] 06/26/25 Transmitted Injection 04:15 Stat Ekg For Chest [facility] 06/26/25 Transmitted Pain 04:11 Notify Md Of Changes [facility] 06/26/25 Transmitted From Base 04:11 Circulation Man For [facility] 06/26/25 Transmitted 24 Hours 04:11 Emergency Dysrhythmia [facility] 06/26/25 Transmitted Protocol 04:11 Rhythm Strips Once [facility] 06/26/25 Transmitted Every Shift 04:11 Oxygen By Nasal 06/26/25 Transmitted Cannula 04:11 Problem List: (1) Sepsis, unspecified organism (2) Generalized weakness Date of Service: Jun 26, 2025 Billing Provider: SILVIA MATTA DNP Common Visit Codes: [id number] INP/OBS CARE (HIGH) SILVIA MATTA DNP Jun 26, 2025 04:28
[2025-06-26 13:28] LABS: Base Excess -0.9 mmol/L (-2.0-3.0)
[2025-06-26 13:34] LABS: Amphetamine Screen, Urine Neg (NEGATIVE); Barbiturate Scree,Urine Neg (NEGATIVE); Benzodiazephine Screen, Urine Neg (NEGATIVE); Cannabinoid Screen, Urine Neg (NEGATIVE); Cocaine Screen, Urine Neg (NEGATIVE); Opiate Scree,Urine Neg (NEGATIVE); Phencyclidine Screen, Urine Neg (NEGATIVE)
[2025-06-26] MEDS: ESTRADIOL 1 MG TAB PO ONE (14:00)
[2025-06-26] MEDS: LOSARTAN POTASSIUM 25 MG TAB PO ONE (14:00)
--- NOTE | 2025-06-26 14:10 | DVHPN2 ---
Progress Note Date Seen: Jun 26, 2025 Medical Necessity Reason Pt with a Central, PICC or Fol: No Subjective Patient reports: Feels better Changes from previous H/P or p: No Changes Objective vital signs Vital Sign Date Time Temp Pulse Resp B/P (MAP) Pulse Ox O2 Delivery O2 Flow Rate FiO2 06/26/25 13:31 75 134/70 06/26/25 13:00 98.0 18 96 98.0 06/26/25 10:00 Room Air* 0 21 medications Current Medications Medications Dose Ordered Sig/Lacey Route Start Time Stop Time Status Last Admin Dose Admin Levalbuterol HCl 0.625 mg Q6HR NEB 06/26/25 06:00 06/26/25 11:38 0.625 MG Metoprolol Tartrate 25 mg BID PO 06/26/25 10:00 06/26/25 09:59 25 MG Clonidine HCl 0.1 mg Q4HP PRN PO 06/26/25 02:00 Piperacillin Sod/ Tazobactam Sod 100 ml @ 25 mls/hr Q8HR IV 06/26/25 06:00 06/26/25 06:06 25 MLS/HR Sodium Chloride 10 ml Q8HR IV 06/26/25 06:00 06/26/25 06:02 10 ML Ondansetron HCl 4 mg Q4HP PRN IV 06/26/25 02:00 Docusate Sodium 100 mg BIDPRN PRN PO 06/26/25 02:00 Acetaminophen 650 mg Q6HP PRN PO 06/26/25 02:00 Sodium Chloride 1,000 ml @ 60 mls/hr [id number] IV 06/26/25 04:15 06/26/25 04:15 60 MLS/HR Nitroglycerin 0.4 mg Q5MINP PRN SL 06/26/25 04:15 Morphine Sulfate 2 mg Q30M PRN IV 06/26/25 04:15 Estradiol 1 mg DAILY PO 06/27/25 10:00 UNV Losartan Potassium 25 mg DAILY PO 06/27/25 10:00 UNV Acetaminophen/ Hydrocodone Bitart 1 tab Q6HP PRN PO 06/26/25 14:00 UNV Examination: GENERAL:Normal, HEENT:Normal, NECK:Normal, LUNGS:Normal, CVS:Normal, ABDOMEN:Normal, MSK:Normal, SKIN:Normal, NEURO:Normal laboratory and microbiology Laboratory Tests 06/26/25 03:41 Test 06/26/25 03:41 Range/Units Serum Glucose 107 H 74-106 mg/dL Labs and/or images reviewed: Labs reviewed by me, Image(s) reviewed by me Problem List/Assessment/Plan Problem List/Assessment/Plan Sepsis possible evaluate infection Recent COVID-19 WBC remained elevated IV fluids Pain control IV antibiotics for now ESR normal, CRP elevated. Pending pro count to assess if bacterial versus viral Monitor vital Plan discussed with: Patient My Orders My Orders Orders - YONY FREIRE MD Procedure Category Date Status Time Abg W/ Co-Ox RT 06/26/25 Logged 13:11 Estradiol Tablet PHA 06/27/25 Logged (Estrace Tablet) 10:00 Estradiol Tablet PHA 06/26/25 Logged (Estrace Tablet) 14:00 Losartan Tablet PHA 06/27/25 Logged (Cozaar Tablet) 10:00 Losartan Tablet PHA 06/26/25 Logged (Cozaar Tablet) 14:00 Hydrocodone-Acet PHA 06/26/25 Logged 7.5/325mg Tab ([place] 14:00 Date of Service: Jun 26, 2025 Billing Provider: YONY FREIRE MD Common Visit Codes: 19814-JCY/[id number] SAME DATE (MOD) YONY FREIRE MD Jun 26, 2025 14:10
[2025-06-26] MEDS: HYDROcodone-ACET 7.5/325MG TAB PO PRN (14:55)
[2025-06-26] MEDS: ONDANSETRON HCL 4 MG/2 ML VIAL IV PRN (17:57)
[2025-06-26] MEDS: HYDROcodone-ACET 5/325MG TAB PO ONE (21:59)
[2025-06-27] VITALS (12 sets, daily range): BP systolic 103–140; BP diastolic 51–83; PULSE 63–78; RESP 17–19; TEMP 97.9–99.1; O2SAT 93–100
[2025-06-27] MEDS ORDERED: LEVALBUTEROL HCL 1.25 MG/3 ML NEB NEB PRN (00:30)
[2025-06-27 07:08] LABS: Hematocrit 36.1 % (36.0-46.0); Hemoglobin 12.0 g/dL (12.2-16.2); Mean Corpuscular Hemoglobin 30.1 pg (28.0-32.0); Mean Corpuscular Volume 90.5 fL (80.0-100.0); Nucleated Red Blood Cells % 0.0 %
[2025-06-27 07:26] LABS: Alkaline Phosphatase 81 U/L (46-116); Anion Gap 9 (5-15); BUN/Creatinine Ratio 11.3 (10.0-20.0); Blood Urea Nitrogen 11 mg/dL (9-23); Calcium 8.7 mg/dL (8.7-10.4); Carbon Dioxide 28 mmol/L (20-31); Chloride 106 mmol/L (98-107); Glucose 85 mg/dL (74-106); Potassium 3.9 mmol/L (3.5-5.1); Sodium 143 mmol/L (136-145); Total Protein 6.1 g/dL (5.7-8.2)
[2025-06-27 07:27] LABS: Alanine Aminotransferase < 9 U/L (7-40); Albumin 3.7 g/dL (3.2-4.8); Bilirubin, Total 0.5 mg/dL (0.2-1.0)
[2025-06-27] MEDS: ESTRADIOL 1 MG TAB PO SCH (10:00)
[2025-06-27] MEDS: LOSARTAN POTASSIUM 25 MG TAB PO SCH (10:02)
--- NOTE | 2025-06-27 14:48 | DVHPN2 ---
Progress Note Date Seen: Jun 27, 2025 Medical Necessity Reason Pt with a Central, PICC or Fol: No Subjective Patient reports: No new complaints (pt is awake, alert, resting in bed. feel mild clinical improvement. cr continue to trend up. ) Changes from previous H/P or p: No Changes Objective vital signs Vital Sign Date Time Temp Pulse Resp B/P (MAP) Pulse Ox O2 Delivery O2 Flow Rate FiO2 06/27/25 12:52 98.1 63 18 120/76 (91) 97 98.1 06/27/25 10:00 Room Air 0.0 06/27/25 10:00 21 Total Intake and Output 06/26/25 06/26/25 06/27/25 15:00 23:00 07:00 Intake Total 1500 ml 300 ml Balance 1500 ml 300 ml medications Current Medications Medications Dose Ordered Sig/Lacey Route Start Time Stop Time Status Last Admin Dose Admin Metoprolol Tartrate 25 mg BID PO 06/26/25 10:00 06/27/25 10:01 25 MG Clonidine HCl 0.1 mg Q4HP PRN PO 06/26/25 02:00 Piperacillin Sod/ Tazobactam Sod 100 ml @ 25 mls/hr Q8HR IV 06/26/25 06:00 06/27/25 14:37 25 MLS/HR Sodium Chloride 10 ml Q8HR IV 06/26/25 06:00 06/27/25 14:38 10 ML Ondansetron HCl 4 mg Q4HP PRN IV 06/26/25 02:00 06/26/25 17:57 4 MG Docusate Sodium 100 mg BIDPRN PRN PO 06/26/25 02:00 Acetaminophen 650 mg Q6HP PRN PO 06/26/25 02:00 Sodium Chloride 1,000 ml @ 60 mls/hr [id number] IV 06/26/25 04:15 06/27/25 13:01 60 MLS/HR Nitroglycerin 0.4 mg Q5MINP PRN SL 06/26/25 04:15 Morphine Sulfate 2 mg Q30M PRN IV 06/26/25 04:15 Estradiol 1 mg DAILY PO 06/27/25 10:00 Losartan Potassium 25 mg DAILY PO 06/27/25 10:00 06/27/25 10:02 25 MG Acetaminophen/ Hydrocodone Bitart 1 tab Q6HP PRN PO 06/26/25 14:00 06/26/25 14:55 1 TAB Levalbuterol HCl 0.625 mg Q6HPRN PRN NEB 06/27/25 00:30 Examination: GENERAL:Normal, HEENT:Normal, NECK:Normal, LUNGS:Normal, CVS:Normal, ABDOMEN:Abnormal (Mild discomfort in diffuse abdomen upon palpation), SKIN:Normal, NEURO:Normal laboratory and microbiology Laboratory Tests 06/27/25 06:43 Test 06/27/25 06:43 Range/Units Serum Glucose 85 74-106 mg/dL Microbiology Date/Time Source Procedure Growth Status 06/25/25 23:59 Blood Blood Culture - Preliminary NO GROWTH AFTER 24 HOURS OF INCUBATION. Resulted Problem List/Assessment/Plan Problem List/Assessment/Plan Sepsis possible evaluate infection Recent COVID-19 WBC trending down CRP trended of IV fluids Pain control IV antibiotics for now Pertinent per CELESTINE. Trend CRP tomorrow morning Monitor vital Plan discussed with: Patient Date of Service: Jun 27, 2025 Billing Provider: YONY FREIRE MD Common Visit Codes: 21535-YJQ/OBS SAME DATE (MOD) YONY FREIRE MD Jun 27, 2025 14:48
[2025-06-28] VITALS (7 sets, daily range): BP systolic 113–132; BP diastolic 65–80; PULSE 62–74; RESP 17–20; TEMP 97.3–97.8; O2SAT 95–100
[2025-06-28 06:45] LABS: Hematocrit 37.3 % (36.0-46.0); Hemoglobin 12.4 g/dL (12.2-16.2); Mean Corpuscular Hemoglobin 30.0 pg (28.0-32.0); Mean Corpuscular Volume 90.2 fL (80.0-100.0); Nucleated Red Blood Cells % 0.1 %
[2025-06-28 07:04] LABS: Alanine Aminotransferase < 9 U/L (7-40); Albumin 4.0 g/dL (3.2-4.8); Alkaline Phosphatase 83 U/L (46-116); Anion Gap 9 (5-15); BUN/Creatinine Ratio 11.6 (10.0-20.0); Bilirubin, Total 0.4 mg/dL (0.2-1.0); Blood Urea Nitrogen 11 mg/dL (9-23); Calcium 9.4 mg/dL (8.7-10.4); Carbon Dioxide 28 mmol/L (20-31); Chloride 105 mmol/L (98-107); Glucose 87 mg/dL (74-106); Potassium 3.9 mmol/L (3.5-5.1); Sodium 142 mmol/L (136-145); Total Protein 6.7 g/dL (5.7-8.2)
--- NOTE | 2025-06-28 13:56 | DVHDS2 ---
Discharge Summary Date of Admission Jun 26, 2025 at 04:11 Date of Discharge: Jun 28, 2025 Labs/Diagnostic Data: Laboratory Results Test 06/28/25 06:09 06/27/25 06:43 06/26/25 13:21 06/26/25 06:18 White Blood Count 7.3 10^3/uL (4.4-10.8) Red Blood Count 4.14 10^6/uL (4.0-5.20) Hemoglobin 12.4 g/dL (12.2-16.2) Hematocrit 37.3 % (36.0-46.0) Mean Corpuscular Volume 90.2 fL (80.0-100.0) Mean Corpuscular Hemoglobin 30.0 pg (28.0-32.0) Mean Corpuscular Hemoglobin Concent 33.2 g/dL (32.0-36.0) Red Cell Distribution Width 13.3 % (11.8-14.3) Platelet Count 288 10^3/uL (140-450) Mean Platelet Volume 8.3 fL (6.9-10.8) Neutrophils (%) (Auto) 63.1 % (37.0-80.0) Lymphocytes (%) (Auto) 22.5 % (10.0-50.0) Monocytes (%) (Auto) 7.4 % (0.0-12.0) Eosinophils (%) (Auto) 6.0 % (0.0-7.0) Basophils (%) (Auto) 1.0 % (0.0-2.0) Neutrophils # (Auto) 4.6 10 ^3/uL (1.6-8.6) Lymphocytes # (Auto) 1.7 10 ^3/uL (0.4-5.4) Monocytes # (Auto) 0.5 10 ^3/uL (0-1.3) Eosinophils # (Auto) 0.4 10 ^3/uL (0-0.8) Basophils # (Auto) 0.1 10 ^3/uL (0-0.2) Nucleated Red Blood Cells 0.1 % Sodium Level 142 mmol/L (136-145) Potassium Level 3.9 mmol/L (3.5-5.1) Chloride Level 105 mmol/L (98-107) Carbon Dioxide Level 28 mmol/L (20-31) Anion Gap 9 (5-15) Blood Urea Nitrogen 11 mg/dL (9-23) Creatinine 0.95 mg/dL (0.550-1.02) Glomerular Filtration Rate Calc 67 mL/min (>90) BUN/Creatinine Ratio 11.6 (10.0-20.0) Serum Glucose 87 mg/dL (74-106) Calcium Level 9.4 mg/dL (8.7-10.4) Total Bilirubin 0.4 mg/dL (0.2-1.0) Aspartate Amino Transferase (AST) 13 U/L (13-40) Alanine Aminotransferase (ALT) < 9 U/L (7-40) Alkaline Phosphatase 83 U/L (46-116) C-Reactive Protein High Sensitivity 2.34 mg/dL (<1.0) Total Protein 6.7 g/dL (5.7-8.2) Albumin 4.0 g/dL (3.2-4.8) Erythrocyte Sedimentation Rate 8 mm/hr (0-20) Blood Gas Specimen Type Arterial Blood Gas Sample Site Right brachial Blood Gas Patient Temperature 37.0 Arterial Blood Date Drawn [id number] Arterial Blood pH 7.435 (7.350-7.450) Arterial Blood Partial Pressure CO2 34.8 mmHg (32.0-45.0) Arterial Blood Partial Pressure O2 71.8 mmHg (83.0-108.0) Arterial Blood HCO3 22.8 mmol/L (21.0-28.0) Arterial Blood Oxygen Saturation 94.2 % (94.0-98.0) Arterial Blood Base Excess -0.9 mmol/L (-2.0-3.0) Arterial Blood Oxyhemoglobin 93.4 % (94.0-98.0) Arterial Blood Carboxyhemoglobin 0.6 % (0.5-1.5) Arterial Blood Methemoglobin 0.3 % (0.0-1.5) Steve Test N/a Blood Gas Total Hemoglobin 12.50 g/dL (12.0-16.0) Blood Gas Modality Room air FiO2 % 21.0 Urine Color Colorless (Yellow) Urine Clarity Clear (Clear) Urine pH 5.5 (5.0-9.0) Urine Specific [place] 1.003 (1.001-1.035) Urine Protein Negative (Negative) Urine Ketones Negative (Negative) Urine Blood Negative /uL (Negative) Urine Nitrite Negative (Negative) Urine Bilirubin Negative (Negative) Urine Urobilinogen Normal mg/dL (Negative) Urine Leukocyte Esterase Negative /uL (Negative) Urine RBC None seen /hpf (0 - 4) Urine Microscopic WBC < 1 /HPF (0-5) Urine Squamous Epithelial Cells Few /hpf (<5) Urine Bacteria None seen /hpf (None Seen) Urine Glucose Normal mg/dL (Normal) Urine Opiates Screen Neg (NEGATIVE) Urine Fentanyl Screen Neg (NEGATIVE) Urine Barbiturates Screen Neg (NEGATIVE) Urine Phencyclidine Screen Neg (NEGATIVE) Urine Amphetamines Screen Neg (NEGATIVE) Urine Benzodiazepines Screen Neg (NEGATIVE) Urine Cocaine Screen Neg (NEGATIVE) Urine Cannabinoids Screen Neg (NEGATIVE) Test 06/26/25 03:15 06/26/25 00:45 06/25/25 23:57 06/25/25 23:52 Influenza Type A Antigen Negative (Negative) Influenza Type B Antigen Negative (Negative) SARS-CoV-2 Antigen (Rapid) Negative (NEGATIVE) Troponin I High Sensitivity < 3 ng/L (</=34) Prothrombin Time 10.1 sec (9.3-11.8) Prothrombin Time INR 0.95 (0.9-1.15) Activated Partial Thromboplast Time 25.9 SEC (24.5-34.5) D-Dimer, Quantitative 0.38 mg/L FEU (0.0-0.49) Lactic Acid Level 1.5 mmol/L (0.4-2.0) Magnesium Level 1.9 mg/dL (1.6-2.6) B-Type Natriuretic Peptide 48.11 pg/mL (0-100) Other Laboratory Tests 06/28/25 06:09 Brief Hx & Hospital Course: The patient is a 65-year-old female with past medical history of hypertension who presented to [facility] ED with complaint of shortness of breaths. Patient reports that she has been experiencing difficulty breathing for the past 1 day, associated with cough, shortness of breaths at rest, increased work of breathing, getting worse that prompted this visit. Patient had elevated lactic acid, sirs. Patient is start antibiotics, CRP was elevated. Antibiotics for two more days due to elevated CRP. CRP trended down today. Patient overall feeling better. Recommended the patient to follow up with the outpatient for rheumatic workup. Condition at Discharge: Stable Final Diagnosis/Problems List Lactic acidosis Serous Elevated inflammatory marker Discharge Disposition: Home Discharge Instruct/Medications Diet: Regular Activity: No Restrictions, As Tolerated Follow Up/Referral: Follow the PCP in one week and recommends referral for Rheumatology Miscellaneous Medications Estradiol (Estradiol), 2 MG PO, (Reported) Hydrocodone-Acetaminophen (Hydrocodone Bitartrate/AC 10-325 mg), 1 TAB PO, (Reported) Losartan Potassium (Losartan Potassium), 25 MG PO, (Reported) Discharge Statement: "Patient was advised to return to the ER or call 911 if any headaches, dizziness, shortness of breath, chest pain, abdominal pain, bleeding, fevers, or worsening of medical condition. Patient was counseled about treatment plan, medications, possible side effects, patientverbalized understanding. All questions were answered to the best of my ability. This discharge took greater then 30 minutes in planning, reviewing documentation, counseling the patient, and discussing with other team members." ASSESSMENT ASSESSMENT Assessment Lactic acidosis Serous Elevated inflammatory marker Date of Service: Jun 28, 2025 Billing Provider: YONY FREIRE MD Common Visit Codes: 18184-FHJ/OBS DISCH DAY >30min YONY FREIRE MD Jun 28, 2025 13:56
[2025-06-30 13:07] LABS: Anti-Nuclear Antibody Direct Negative (Negative)
== END 2025-06-28 15:40 | disposition home or self-care (01) | DRG 204 ==
LOC: ER 23:34 → OVERFLOW 06-26 04:11 → TELE-CENTR 06-26 05:07
PROVIDERS: ADMIT Internal Medicine; ATTEND Internal Medicine
DX: R06.02 Shortness of breath (principal); E87.20 Acidosis, unspecified; R65.10 Systemic inflammatory response syndrome (SIRS) of non-infectious origin without acute organ dysfunction; I10 Essential (primary) hypertension; Z20.822 Contact with and (suspected) exposure to COVID-19; R79.82 Elevated C-reactive protein (CRP); Z90.710 Acquired absence of both cervix and uterus; Z90.49 Acquired absence of other specified parts of digestive tract; Z88.8 Allergy status to other drugs, medicaments and biological substances
CPT/HCPCS: 36415; 36600; 71045; 80053; 80307; 81001; 82805; 83605; 83735; 83880; 84484; 85025; 85379; 85610; 85652; 85730; 86038; 86141; 87040; 87426; 87804; 94640; 96361; 96365; 99291; G0378; J2405; J2543

== ENCOUNTER 2025-07-15 12:40 | Outpatient (CLI) | payer OTHER ==
[~2025-07-15 12:40] MED LIST: ESTR2TAB5 PO; HYDR-4798 PO; LOSA-533 PO
[2025-07-15 13:14] LABS: Chloride 106 mmol/L (98-107); Potassium 3.7 mmol/L (3.5-5.1); Sodium 144 mmol/L (136-145)
[2025-07-15 13:15] LABS: Anion Gap 11 (5-15); Calcium 9.3 mg/dL (8.7-10.4); Carbon Dioxide 27 mmol/L (20-31)
[2025-07-15 13:20] LABS: BUN/Creatinine Ratio 18.5 (10.0-20.0); Blood Urea Nitrogen 17 mg/dL (9-23); Glucose 97 mg/dL (74-106)
[2025-07-15 13:22] LABS: Microalb/Creat Ratio, Urine < 3.0
== END 2025-07-15 17:00 | disposition home or self-care (01) ==
LOC: LAB 12:40
PROVIDERS: ATTEND Internal Medicine
DX: E11.9 Type 2 diabetes mellitus without complications (principal)
CPT/HCPCS: 36415; 80048; 82043; 82570